=== PATIENT | female | born 1970 | race Caucasian/White ===

== ENCOUNTER 2021-09-27 07:30 | Emergency (ER) | payer OTHER, SELFPAY ==
--- NOTE | ~2021-09-27 | XR_ITS ---
EXAMINATION: XR chest 1V portable EXAM DATE: 09/27/2021 09:45 INDICATION: Cough, sob, weakness. TECHNIQUE: Portable AP frontal chest x-ray was obtained. Comparison is made to prior examination from 06/12/2017. FINDINGS: The lungs are clear. There are no pleural effusions. The cardiomediastinal silhouette is within normal limits. There is no pneumothorax suspected. The bones and soft tissues are unremarkab le. There are cholecystectomy clips. IMPRESSION: No acute cardiopulmonary findings. Reviewed, dictated and finalized at location [facility]
[2021-09-27 07:34] VITALS: BP 140/100; PULSE 134; RESP 20; TEMP 36.6; O2SAT 99
[2021-09-27 09:54] LABS: Basophils Percent Auto 0.6 % (0.2-1.2); Eosinophils Absolute Auto 0.1 K/mm3 (0-0.3); Eosinophils Percent Auto 2.1 % (0-4.4); Hematocrit 40.4 % (37.0-47.0); Immature Granulocyte Absolute 0.02 K/mm3 (0.00-0.031); Immature Granulocyte Percent A 0.3 % (0-0.5); Lymphocytes Absolute Auto 1.14 K/mm3 (0.9-3.2); Lymphocytes Percent Auto 16.9 % (18.3-44.2); Mean Corpuscular HGB Conc 32.2 g/dl (32-36); Mean Corpuscular Volume 86.9 fl (80-100); Mean Platelet Volume 10.1 fl (7.4-10.4); Monocytes Absolute Auto 0.7 K/mm3 (0.1-0.6); Monocytes Percent Auto 10.1 % (2.6-8.5); Neutrophils Absolute Auto 4.7 K/mm3 (1.3-6.7); Platelet Count Result 247 k/mm3 (150-375); Red Blood Count 4.65 M/mm3 (4.2-5.4); Red Cell Distribution Width 12.8 % (11.5-14.5); White Blood Count 6.8 K/mm3 (4.5-10.0)
[2021-09-27 09:57] LABS: Alanine Aminotransferase 68 U/L (4-35); Albumin Level 4.5 g/dL (3.5-5.1); Alkaline Phosphatase 101 U/L (38-126); Anion Gap 10 mmol/L (8-16); Aspartate Amino Transferase 51 U/L (14-36); Bilirubin,Total 0.4 mg/dL (0.2-1.3); Blood Urea Nitrogen 13 mg/dL (7-17); Calcium 10.1 mg/dL (8.4-10.2); Carbon Dioxide 25 mmol/L (22-30); Chloride 104 mmol/L (98-107); Estimated CRCL calculation 81 ml/min; Estimated Glomerular Filt Rate > 60; Glucose 123 mg/dL (65-110); Lipase 96 U/L (23-300); Potassium 4.2 mmol/L (3.4-5.0); Sodium 139 mmol/L (137-145)
[2021-09-27] MEDS: SODIUM CHLORIDE 0.9% IV 1,000 ML 999 ML IV CONT (10:02)
[2021-09-27] MEDS: ONDANSETRON INJ 4 MG/2 ML VIAL IV PUSH (10:04)
[2021-09-27] MEDS: BENZONATATE 100 MG CAPSULE 200 MG PO (10:09)
[2021-09-27 10:19] VITALS: PULSE 75; RESP 20; O2SAT 99
--- NOTE | 2021-09-27 10:25 | ED.GENADULT ---
HPI - General Adult General Chief complaint: Nausea/Vomiting/Diarrhea Stated complaint: covid sx Time Seen by Provider: 09/27/21 09:14 Source: patient Mode of arrival: ambulatory Limitations: no limitations History of Present Illness HPI narrative: Patient is a 50-year-old female presenting with chief complaint nausea, vomiting, abdominal pain, cough, congestion that began on Sunday. Patient reports that she has been vaccinated against COVID. Patient reports that her daughter who lives with her tested positive for COVID on a concrete a few days ago. Patient reports that she has been able to eat and drink. He denies any chest pain or shortness of breath. Patient reports diffuse abdominal discomfort. Patient denies any other emergent symptoms. Related Data Allergies Allergy/AdvReac Type Severity Reaction Status Date / Time belladonna alkaloids Allergy Mild Unknown Verified 09/27/21 07:57 dicyclomine Allergy Mild Hives Verified 09/27/21 07:57 erythromycin base Allergy Mild Hives Verified 09/27/21 07:57 Penicillins Allergy Mild Swelling Verified 09/27/21 07:57 of Lip/Tongue/Throat phenobarbital Allergy Mild Nausea and Verified 09/27/21 07:57 Vomiting tetracycline Allergy Mild Hives Verified 09/27/21 07:57 shellfish derived Allergy Swelling Verified 09/27/21 07:57 of Lip/Tongue/Throat aspirin AdvReac Mild tinnitus Verified 09/27/21 07:57 gluten AdvReac Cramping Verified 09/27/21 07:57 of the Muscles lactose AdvReac Diarrhea Verified 09/27/21 07:57 rice AdvReac Swelling Verified 09/27/21 07:57 of Lip/Tongue/Throat soy AdvReac Cramping Verified 09/27/21 07:57 of the Muscles wheat AdvReac Cramping Verified 09/27/21 07:57 of the Muscles Review of Systems Review of Systems: CONSTITUTIONAL: Denies fever, chills, or sweats. EYES: Denies visual changes, redness, or discharge. ENT: Reports congestion, denies sore throat, or otalgia. CARDIOVASCULAR: Denies chest pain, palpitations, or edema. RESPIRATORY: Reports cough denies dyspnea. GASTROINTESTINAL: Reports abdominal pain, nausea, vomiting, or diarrhea. GENITOURINARY: Denies dysuria or hematuria. SKIN: Denies rash or itching. MUSCULOSKELETAL: Denies back pain, joint pain, or myalgia. NEUROLOGIC: Denies headache, numbness, dizziness, or weakness. PSYCHIATRIC: Denies anxiety or depression. Exam Narrative: GENERAL: Well-appearing, well-nourished, and in no acute distress. HEAD: Normocephalic, atraumatic. EYES: PERRLA and EOMI. CHEST: Clear to auscultation. No respiratory distress. No wheezes rales or rhonchi HEART: Regular rate and rhythm. No murmur heard. Normal peripheral pulses. ABDOMEN: Soft, nontender, nondistended, normal active bowel sounds. EXTREMITIES: Normal range of motion. No pitting edema. SKIN: Warm, dry, no rash. NEURO: No focal deficits. Alert and oriented x3. PSYCH: Normal mood and affect. Course Vital Signs Vital signs: Vital Signs Temperature 98 F 09/27/21 07:34 Pulse Rate 134 H 09/27/21 07:34 Respiratory Rate 20 09/27/21 07:34 Blood Pressure 140/100 H 09/27/21 07:34 Pulse Oximetry 99 09/27/21 07:34 Temperature 98 F 09/27/21 07:34 Pulse Rate 89 09/27/21 12:55 Respiratory Rate 18 09/27/21 12:55 Blood Pressure 124/69 09/27/21 12:55 Pulse Oximetry 100 09/27/21 12:55 Medical Decision Making MDM Narrative Medical decision making narrative: Patient vitals and blood work is stable. Patient is not hypoxic. Patient has not had persistent vomiting or diarrhea in the emergency department. Patient not showing signs of C. difficile. Patient has been able to tolerate p.o. challenge. Patient will be prescribed Tessalon Perles for cough and Zofran female with nausea and vomiting. Patient has been instructed to stay hydrated. Instructed to quarantine while awaiting COVID test results. Patient has been instructed to return to emergency department if she has an
[2021-09-27 12:55] VITALS: BP 124/69; PULSE 89; RESP 18; O2SAT 100
[2021-09-27 19:52] LABS: SARS-CoV-2 RNA PCR Positive
== END 2021-09-27 13:10 | disposition home or self-care (01) ==
PROVIDERS: Physician Assistant; Emergency Provider Emergency Medicine
DX: U07.1 COVID-19 (principal); R11.2 Nausea with vomiting, unspecified
CPT/HCPCS: 36415; 71045; 80053; 83690; 85025; 96361; 96374; 99284; A9270; C9803; J2405; J7030; U0003; U0005

== ENCOUNTER 2022-01-23 21:12 | Emergency (ER) | payer OTHER, SELFPAY ==
--- NOTE | ~2022-01-23 | XR_ITS ---
EXAM: XR hip LT 2V w AP pelvis HISTORY: left hip pain X3 WEEKS, FELL OFF BED ONTO HIP . COMPARISON: None available. FINDINGS: Normal mineralization. No fracture or dislocation. No lytic or blastic lesion. Bilateral s uperior hip joint space narrowing. Scattered enthesopathy. Degenerative changes in the lumbar spine. No erosion or periosteal change. Soft tissues within normal limits. IMPRESSION: No acute osseous finding in the left hip or pelvis. Reviewed, dictated and finalized at location K.
[2022-01-23 21:18] VITALS: BP 153/102; PULSE 78; RESP 20; TEMP 36.8; O2SAT 100
[2022-01-23 23:18] VITALS: BP 165/89; PULSE 73; RESP 16; O2SAT 100
--- NOTE | 2022-01-24 00:55 | ED.GENADULT ---
HPI - General Adult General Chief complaint: Fall Stated complaint: left hip pain Time Seen by Provider: 01/24/22 00:20 Source: patient Mode of arrival: ambulatory Limitations: no limitations History of Present Illness HPI narrative: Patient is a 51-year-old female who presents the ED with report of left hip pain. Patient reports she fell out of bed 3 weeks ago and has had pain in her left hip since then. No HI, LOC. She was not evaluated initially after the injury. She reports the most pain with bending and externally rotating her left leg, like the position she would need to be in to put on her socks. She has been taking anti-inflammatories and Tylenol at home. She has been able to ambulate, but has had continued pain which prompted her to come to the ED tonight. The pain does radiate somewhat down her posterior left leg. Patient denies any further falls, left knee pain, left ankle pain, back pain. No incontinence, numbness, tingling, weakness. No further injury. Related Data Allergies Allergy/AdvReac Type Severity Reaction Status Date / Time belladonna alkaloids Allergy Mild Unknown Verified 01/23/22 23:19 dicyclomine Allergy Mild Hives Verified 01/23/22 23:19 erythromycin base Allergy Mild Hives Verified 01/23/22 23:19 Penicillins Allergy Mild Swelling Verified 01/23/22 23:19 of Lip/Tongue/Throat phenobarbital Allergy Mild Nausea and Verified 01/23/22 23:19 Vomiting tetracycline Allergy Mild Hives Verified 01/23/22 23:19 shellfish derived Allergy Swelling Verified 01/23/22 23:19 of Lip/Tongue/Throat aspirin AdvReac Mild tinnitus Verified 01/23/22 23:19 gluten AdvReac Cramping Verified 01/23/22 23:19 of the Muscles lactose AdvReac Diarrhea Verified 01/23/22 23:19 rice AdvReac Swelling Verified 01/23/22 23:19 of Lip/Tongue/Throat soy AdvReac Cramping Verified 01/23/22 23:19 of the Muscles wheat AdvReac Cramping Verified 01/23/22 23:19 of the Muscles Review of Systems Review of Systems: CONSTITUTIONAL: Denies fever, chills. GASTROINTESTINAL: Denies incontinence. GENITOURINARY: Denies dysuria, incontinence, or hematuria. SKIN: Denies bruising, rash or itching. MUSCULOSKELETAL: Reports L hip pain, radiating down posterior LLE. Denies back pain, L knee/ankle pain. NEUROLOGIC: Denies numbness, tingling, or weakness. All systems reviewed & are unremarkable except as noted in HPI and below PMFSH Past Medical History Medical History (Updated 01/24/22 @ 01:12 by Elizabeth Gifford PA-C) HTN (hypertension) Surgical History Surgical History (Updated 01/24/22 @ 01:01 by Elizabeth Gifford PA-C) No pertinent past surgical history Social History Social History (Updated 01/24/22 @ 01:01 by Elizabeth Gifford PA-C) Smoking status: Never smoker Exam Narrative: GENERAL: Well appearing, obese, non-toxic, in no acute distress. HEAD: Normocephalic, atraumatic. NECK: Supple. No adenopathy, no masses. RESPIRATORY: Airway patent, respirations nonlabored. Clear to auscultation bilaterally, no rales, rhonchi, wheezing. CARDIOVASCULAR: Regular rate and rhythm without murmurs, rubs, or gallops. Peripheral pulses 2+ and equal bilaterally. MUSCULOSKELETAL: Moves all extremities. Strength/ROM intact without gross deformities. Mild TTP of L lateral hip over iliac crest and L SI joint. Minimal decreased flexion of L hip compared to R. No edema. No calf tenderness. No midline lumbar spinal tenderness. SKIN: Warm, dry, normal color. No rashes. No ecchymosis to L hip region. NEURO: A&O X3. Speech clear. Cranial nerves II-XII grossly intact. Steady gait. No ataxic movements. PSYCHIATRIC: Appropriate mood and affect. Normal interaction. Course Vital Signs Vital signs: Vital Signs Temperature 98.3 F 01/23/22 21:18 Pulse Rate 78 01/23/22 21:18 Respiratory Rate 20 01/23/22 21:18 Blood Pressure 153/102 H 01/23/22 21:18 Pulse Oximetry 100 01/23/22 21:18 Tem
--- NOTE | 2022-01-24 01:05 | PC.NURSE ---
This RN contacted Umair in pharmacy about potential adverse reaction with giving toradol. Per Umair, one-time dose should be okay for pt to receive.
[2022-01-24] MEDS: KETOROLAC (*BKC) 60 MG/2 ML VIAL IM (01:12)
== END 2022-01-24 01:51 | disposition home or self-care (01) ==
PROVIDERS: Emergency Provider General Practice; PCP Nurse Practitioner Family
DX: M25.552 Pain in left hip (principal); I10 Essential (primary) hypertension
CPT/HCPCS: 73502; 96372; 99283; J1885

== ENCOUNTER 2022-02-11 10:33 | Emergency (ER) | payer OTHER, SELFPAY ==
[2022-02-11 10:51] VITALS: BP 166/89; PULSE 85; RESP 20; TEMP 36.9; O2SAT 100
[2022-02-11 11:28] VITALS: BP 171/92
--- NOTE | 2022-02-11 11:30 | PC.NURSE ---
Patient reports she took Robitussin CF, Dayquil, Robitussin pills, and two [employer] energy drinks today.
[2022-02-11] MEDS: DEXAMETHASONE 2 MG TABLET 6 MG PO (13:18)
[2022-02-11 13:25] VITALS: BP 162/80; PULSE 82; RESP 14; O2SAT 99
--- NOTE | 2022-02-11 18:29 | ED.URI ---
HPI - URI/Sore Throat General Chief Complaint: Upper Respiratory Infection Stated Complaint: Cough, High BP Time Seen by Provider: 02/11/22 11:36 Source: patient Mode of arrival: ambulatory Limitations: no limitations History of Present Illness HPI Narrative: 51-year-old female presents today with complaints of cough that has worsened over the last 4 to days. Patient seen in urgent care today and sent here due to high blood pressure and inability of them to give her steroids. Patient works night shifts. Patient has been up for over 24 hours and has recently had a intake of 2 energy drinks. Patient does have a history of hypertension diagnosed a couple years ago. Patient took her self off of hypertensive medications. Related Data Allergies Allergy/AdvReac Type Severity Reaction Status Date / Time belladonna alkaloids Allergy Mild Unknown Verified 01/23/22 23:19 dicyclomine Allergy Mild Hives Verified 01/23/22 23:19 erythromycin base Allergy Mild Hives Verified 01/23/22 23:19 Penicillins Allergy Mild Swelling Verified 01/23/22 23:19 of Lip/Tongue/Throat phenobarbital Allergy Mild Nausea and Verified 01/23/22 23:19 Vomiting tetracycline Allergy Mild Hives Verified 01/23/22 23:19 shellfish derived Allergy Swelling Verified 01/23/22 23:19 of Lip/Tongue/Throat aspirin AdvReac Mild tinnitus Verified 01/23/22 23:19 gluten AdvReac Cramping Verified 01/23/22 23:19 of the Muscles lactose AdvReac Diarrhea Verified 01/23/22 23:19 rice AdvReac Swelling Verified 01/23/22 23:19 of Lip/Tongue/Throat soy AdvReac Cramping Verified 01/23/22 23:19 of the Muscles wheat AdvReac Cramping Verified 01/23/22 23:19 of the Muscles Review of Systems Review of Systems: CONSTITUTIONAL: Denies fever, chills, or sweats. EYES: Denies visual changes, redness, or discharge. ENT: Sinus drainage. Denies rhinorrhea, congestion, sore throat, or otalgia. CARDIOVASCULAR: Denies chest pain, palpitations, or edema. RESPIRATORY: Cough. Denies dyspnea. GASTROINTESTINAL: Denies abdominal pain, nausea, vomiting, or diarrhea. GENITOURINARY: Denies dysuria or hematuria. SKIN: Denies rash or itching. MUSCULOSKELETAL: Denies back pain, joint pain, or myalgia. NEUROLOGIC: Denies headache, numbness, dizziness, or weakness. PSYCHIATRIC: Denies anxiety or depression. [facility] Past Medical History Medical History (Updated 02/11/22 @ 12:50 by Janeth Loya APRN) HTN (hypertension) Surgical History Surgical History (Updated 01/24/22 @ 01:01 by Elizabeth Gifford PA-C) No pertinent past surgical history Social History Social History (Updated 01/24/22 @ 01:01 by Elizabeth Gifford PA-C) Smoking status: Never smoker Exam Narrative: GENERAL: Well-appearing, well-nourished, and in no acute distress. HEAD: Normocephalic, atraumatic. EYES: PERRLA and EOMI. ENT: Nares clear, no rhinorrhea or epistaxis. Mucous membranes moist. Oropharynx without tonsillar hypertrophy exudate or other lesions. Bilateral TMs pearly mary nonbulging NECK: Supple. No adenopathy or masses. No carotid bruits or JVD CHEST: Clear to auscultation. No respiratory distress. No wheezes rales or rhonchi harsh cough noted. HEART: Regular rate and rhythm. No murmur heard. Normal peripheral pulses. ABDOMEN: Soft, nontender, nondistended, normal active bowel sounds. EXTREMITIES: Normal range of motion. No edema. SKIN: Warm, dry, no rash. NEURO: No focal deficits. Alert and oriented x3. PSYCH: Normal mood and affect. Course Vital Signs Vital signs: Vital Signs Temperature 36.9 C 02/11/22 10:51 Pulse Rate 85 02/11/22 10:51 Respiratory Rate 20 02/11/22 10:51 Blood Pressure 166/89 H 02/11/22 10:51 Pulse Oximetry 100 02/11/22 10:51 Oxygen Delivery Room Air 02/11/22 10:51 Temperature 36.9 C 02/11/22 10:51 Pulse Rate 82 02/11/22 13:25 Respiratory Rate 14 02/11/22 13:25 Blood Pressure 162/80 H
== END 2022-02-11 13:25 | disposition home or self-care (01) ==
PROVIDERS: Emergency Provider Nurse Practitioner Family; PCP Nurse Practitioner Family
DX: J40 Bronchitis, not specified as acute or chronic (principal); I10 Essential (primary) hypertension
CPT/HCPCS: 99284; J8540

== ENCOUNTER 2023-12-24 19:03 | Emergency (ER) | payer OTHER, SELFPAY ==
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
[2023-12-24 19:30] VITALS: BP 159/99; PULSE 94; RESP 14; TEMP 36.8; O2SAT 97
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
== END 2023-12-24 22:35 | disposition home or self-care (01) ==
LOC: ANHED 22:32
PROVIDERS: Emergency Provider Emergency Medicine; PCP Nurse Practitioner Family
DX: S29.012A Strain of muscle and tendon of back wall of thorax, initial encounter (principal); S10.93XA Contusion of unspecified part of neck, initial encounter; I10 Essential (primary) hypertension; V43.52XA Car driver injured in collision with other type car in traffic accident, initial encounter
CPT/HCPCS: 71045; 99283